=== PATIENT | female | born 1985 | race Caucasian/White ===

== ENCOUNTER 2016-08-23 08:00 | Emergency (ER) | payer BC ==
[2016-08-23 08:10] VITALS: BP 97/59
--- NOTE | 2016-08-23 08:28 | UC ---
Skin Complaint HPI - HPI Summary HPI Summary: rash on both hands x 5 days history of eczema of the the hands for years , been under good control by topical meds having a flair up of the eczema and not getting better . + itchy, redness, skin pealing and painful - History of Current Complaint Chief Complaint: UCSkin Time Seen by Provider: 08/23/16 08:17 Stated Complaint: RASH Hx Obtained From: Patient Hx Last Menstrual Period: 08/05/16 Onset/Duration: Gradual Onset, Lasting Days - 5, Still Present Timing: Constant Onset Severity: Moderate Current Severity: Moderate Location: Hand (Right), Hand (Left) Character: Pruritus, Pain, Redness, Raised, Painful Aggravating: Touch Alleviating: Nothing Associated Signs & Symptoms: Positive: Rash, Tenderness. Negative: Numbness - Allergy/Home Medications Allergies/Adverse Reactions: Allergies Allergy/AdvReac Type Severity Reaction Status Date / Time No Known Allergies Allergy Verified 09/30/14 08:16 Home Medications: Home Medications Tacrolimus 0.03% OINT(NF) [Protopic 0.03% OINT(NF)] 08/23/16 [History] Triamcinolone 0.025% OINT * 08/23/16 [History] Review of Systems Constitutional: Negative Skin: Rash Eyes: Negative ENT: Negative Respiratory: Negative All Other Systems Reviewed And Are Negative: Yes PMH/Surg Hx/FS Hx/Imm Hx - Additional Past Medical History Additional PMH: hx of eczema of hands - Surgical History Surgical History: None - Family History Known Family History: Negative: Diabetes - Social History Alcohol Use: None Substance Use Type: None Smoking Status (MU): Never Smoked Tobacco Physical Exam Triage Information Reviewed: Yes Appearance: Well-Appearing, No Pain Distress, Well-Nourished Vital Signs: Initial Vital Signs Temp 98.6 F 08/23/16 08:04 Pulse 80 08/23/16 08:04 Resp 16 08/23/16 08:04 BP 97/59 08/23/16 08:04 Pulse Ox 100 08/23/16 08:04 Vital Signs Reviewed: Yes Eyes: Positive: Conjunctiva Clear ENT: Positive: Normal ENT inspection, Hearing grossly normal, Pharynx normal Neck: Positive: Supple, Nontender, No Lymphadenopathy Respiratory: Positive: Chest non-tender, Lungs clear, Normal breath sounds Cardiovascular: Positive: RRR, No Murmur Skin: Positive: rashes - + macular rash of both hands, + erythema, no swelling , no tenderness Course/Dx - Differential Diagnoses - Skin Complaint Differential Diagnoses: Tinea - Diagnoses Provider Diagnoses: eczema hands Discharge - Discharge Plan Condition: Stable Disposition: HOME Prescriptions: predniSONE TAB* [Deltasone TAB*] 40 mg PO DAILY #14 tab Patient Education Materials: Eczema (ED) Referrals: Lesly Waters NP [Primary Care Provider] - 7 Days Additional Instructions: also concern about possible fungal infection of the hand will treat you for eczema exacerbation and please follow up with 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
== END 2016-08-23 08:36 | disposition home or self-care (01) ==
LOC: UCEAST 08:00
DX: L30.9 Dermatitis, unspecified (principal)
CPT/HCPCS: 99212; G0463

== ENCOUNTER 2017-06-07 15:26 | Inpatient (IN) | payer BC ==
--- NOTE | 2017-06-07 16:07 | HP ---
General Information - General Information Maternal Age: 32 Grav: 1 Para: 0 SAB: 0 IEA: 0 Estimated Due Date: 06/03/17 Determined By: LMP Gestational Age in Weeks and Days: 40 Weeks and 4 Days Maternal Blood Type and Rh: A Positive - Results this Serology/RPR Result: Non-Reactive Rubella Result: Immune HBsAg Result: Negative HIV Result: Negative GBS Culture Result: Negative Past Medical History Delivery History: See Records Pertinent Past Medical History: Non-Contributory Past Medical History Comment: eczema asthma depression/anxiety--managed without meds Pertinent Past Surgical History: See Records Past Surgical History Comment: Tonsillectomy 2004 Pertinent Family History: Non-Contributory - Antepartal Records Antepartal Records: Reviewed, Uncomplicated Review of Systems Constitutional: Uncomfortable CV Complaint: No Respiratory: Shortness of Breath: No Gastrointestinal: Normal Bowel Movement Genitourinary: Bleeding - brownish bloody show, No Dysuria, No Leaking Fluid Musculoskeletal: Back Pain, Contractions Neurological: No Headache, No Visual Changes Movement: Normal Exam Allergies/Adverse Reactions: Allergies No Known Allergies Allergy (Verified 09/30/14 08:16) Vital Signs 06/07/17 15:35 Temperature 99.1 F Pulse Rate 71 Respiratory 16 Rate Blood Pressure 119/73 (mmHg) O2 Sat by Pulse 100 Oximetry - Measurements Height: 5 ft 3 in Weight: 162 lb Weight in lbs: 162 Body Mass Index (BMI): 28.7 Pre- Weight: 134 lb Weight Gained This : 28 lbs and 0 ozs - Exam Abdomen: No Upper Quadrant Pain Breast: Breast Exam Deferred CVA: No CVA Tenderness Extremities: No Edema Heart: Normal Rhythm/Heart Sounds HEENT: No Significant Findings Lungs: Clear Bilaterally Rectal: Rectal Exam Deferred Reflexes: DTR 2+, - - no clonus Thyroid: - - exam WNL @ entry to care - Abdominal Exam Abdomen Exam: Non-Tender Abdomen Exam Comment: EFW 7.5-8lb - Membranes Membrane Status: Intact - Ultrasound/Biophysical Profile Ultrasound Status: Not Done EFM Findings - External Monitor Findings Baseline Heart Rate: 155 External Monitor Findings: Accelerations Present, No Pattern of Variable or Late Decelerations, Variability Moderate Contractions: Regular, Strong, 45-90 Seconds Contraction Frequency: Q 2-4 min Assessment/Plan - Reason for Visit Reason for Visit: IUP @ 40+4 weeks gestation. IBOW. No evidence metabolic acidemia. - Plan Plan: Active Labor Plan Comment: Admit to L&D. Plans unmedicated delivery. Anticipate SVB - Date/Time of Admission Date of Admission: 06/07/17 Time of Admission: 15:55
[2017-06-07 19:45] LABS: ABS Basophils 0.1 10^3/ul (0-0.2); ABS Eosinophils 0 10^3/ul (0-0.6); ABS Lymphocytes 1.6 10^3/ul (1.0-4.8); ABS Monocytes 0.7 10^3/ul (0-0.8); ABS Neutrophils 15.2 10^3/ul (1.5-7.7); ABS Nucleated RBC 0 10^3/ul; Eosinophil % 0 % (0-6); Hematocrit 41 % (35-47); Hemoglobin 14.1 g/dl (12.0-16.0); Mean Corpuscular HGB Conc 35 g/dl (31-36); Mean Corpuscular Hemoglobin 33 pg (27-31); Mean Corpuscular Volume 94 fL (80-97); Mean Platelet Volume 10.2 um3 (7.4-10.4); Nucleated Red Blood Cells % 0.1; Platelet Count 165 10^3/ul (150-450); Red Blood Count 4.31 10^6/ul (4.0-5.4); Red Cell Distribution Width 13 % (10.5-15); White Blood Count 17.7 10^3/ul (3.5-10.8)
[2017-06-07] MEDS ORDERED: OBEPIDURAL* 250 ML EPIDURAL ONE (19:45)
[2017-06-07] MEDS ORDERED: fentaNYL* 50 MCG/ML 2 ML VIAL (100 MCG VIAL) ONE (20:06)
[2017-06-07] MEDS ORDERED: Sodium Citrate/Citric Acid* 15 ML UDC PO PRN (20:36)
[2017-06-07] MEDS ORDERED: Famotidine TAB* 20 MG PO PRN (20:36)
[2017-06-07] MEDS ORDERED: Phenylephrine IV* 40 MCG/ML 10 ML SYRINGE IV PUSH PRN ×2 (20:36)
[2017-06-07] MEDS ORDERED: OBEPIDURAL* 250 ML EPIDURAL SCH (21:00)
[2017-06-08] MEDS ORDERED: Oxytocin in LR* 20 UNITS/1,000 ML BAG IVPB ONE (05:22)
[2017-06-08] MEDS ORDERED: Oxytocin in LR* 20 UNITS/1,000 ML BAG IVPB SCH (06:00)
--- NOTE | 2017-06-08 08:22 | PN ---
Progress Note - Progress Note Date of Service: 06/08/17 - labor check Note: FHT 145, mod variability. Contractions q 2-3 Pt uncomfortable, even with epidural Cervix: 8-9cm, 90%, vtx -1. AROM with exam, dark mec stained fluid Dr. García contacted to bolus epidural. Plan: get pt comfortable, continue position changes/pitocin augmentation, hope for continued progress. Pt aware of possible need for CS
[2017-06-08] MEDS ORDERED: ceFOXitin 2 GM IVPREMIX* 2 GM/50 ML BAG IVPB ONE (10:15)
--- NOTE | 2017-06-08 10:19 | PN ---
Progress Note - Progress Note Date of Service: 06/08/17 - labor check Note: pt still uncomfortable despite epidural bolus Cervix: unchanged 8cm/90%/-1 at 1000 Impression: arrest of dilation at 8cm Plan: CS recommended, pt agreeable Dr. Mccartney previously consulted, agrees with plan
[2017-06-08] MEDS ORDERED: Morphine PF AMP (0.5MG/ML)* 5 MG/10 ML AMP ONE (10:32)
[2017-06-08] MEDS ORDERED: OXYTOCIN* 10 UNITS/ML 1 ML VIAL ONE (11:29)
[2017-06-08] MEDS ORDERED: Methylergonovine INJ* 0.2 MG/ML 1ML AMP ONE (11:32)
[2017-06-08] MEDS ORDERED: Naloxone* 0.4 MG/ML 1 ML VIAL IV PRN ×2 (12:10→12:11)
[2017-06-08] MEDS ORDERED: HYDROcodone/ACETAMIN 5-325 MG* 1 TAB PO PRN (12:11)
[2017-06-08] MEDS ORDERED: Ondansetron INJ* 2 MG/ML VIAL ONE (12:13)
[2017-06-08] MEDS: Ondansetron INJ* 2 MG/ML VIAL IV PRN ×2 (12:16→18:15)
[2017-06-08] MEDS: Ibuprofen TAB* 400 MG PO SCH ×3 (12:45→23:42)
[2017-06-08] MEDS ORDERED: Glycerin ADULT SUPP PR PRN (17:48)
[2017-06-08] MEDS ORDERED: Witch Hazel PAD* JAR TOPICAL PRN (17:48)
[2017-06-08] MEDS ORDERED: Zolpidem TAB* 5 MG PO PRN (17:48)
[2017-06-08] MEDS: Docusate CAP* 100 MG PO SCH (21:00)
[2017-06-08] MEDS: Simethicone TAB* 80 MG TAB.CHEW PO SCH (21:00)
[2017-06-09] MEDS ORDERED: HYDROcodone/ACETAMIN 5-325 MG* 1 TAB PO PRN (04:01)
[2017-06-09] MEDS: Ibuprofen TAB* 600 MG PO PRN ×3 (06:13→22:55)
[2017-06-09 07:01] LABS: ABS Basophils 0.1 10^3/ul (0-0.2); ABS Eosinophils 0.1 10^3/ul (0-0.6); ABS Lymphocytes 3.1 10^3/ul (1.0-4.8); ABS Monocytes 1.1 10^3/ul (0-0.8); ABS Neutrophils 11.9 10^3/ul (1.5-7.7); ABS Nucleated RBC 0 10^3/ul; Eosinophil % 0.6 % (0-6); Hematocrit 30 % (35-47); Hemoglobin 10.5 g/dl (12.0-16.0); Lymphocyte % 19.2 % (25-47); Mean Corpuscular HGB Conc 35 g/dl (31-36); Mean Corpuscular Hemoglobin 33 pg (27-31); Mean Corpuscular Volume 96 fL (80-97); Nucleated Red Blood Cells % 0; Platelet Count 131 10^3/ul (150-450); Red Blood Count 3.15 10^6/ul (4.0-5.4); Red Cell Distribution Width 13 % (10.5-15); White Blood Count 16.3 10^3/ul (3.5-10.8)
[2017-06-09] MEDS ORDERED: Ferrous Gluconate TAB* 324 MG TAB PO SCH (09:00)
[2017-06-09] MEDS: Docusate CAP* 100 MG PO SCH ×3 (09:33→21:00)
[2017-06-09] MEDS: Simethicone TAB* 80 MG TAB.CHEW PO SCH ×4 (09:33→21:00)
--- NOTE | 2017-06-09 10:52 | OP ---
CC: Asuncion Vail CNM; [facility] OPERATIVE REPORT: DATE OF OPERATION: 06/08/17 DATE OF : 85 SURGEON: Abhay Mccartney MD SANDER OPERATOR: Asuncion Vail CNM ANESTHESIA: Spinal. PRE-OP DIAGNOSIS: Intrauterine at 40 weeks, in labor with arrest of descent and dilation. POST-OP DIAGNOSIS: Intrauterine at 40 weeks, in labor with arrest of descent and dilation along with macrosomia. OPERATIVE PROCEDURE: Primary low transverse section. ESTIMATED BLOOD LOSS: 700 cc. IV FLUIDS: She received 1700 cc of IV crystalloid fluid. URINE OUTPUT: Clear. SPECIMENS: Sent to Pathology were cord blood. FINDINGS: Delivery of a viable male over the meconium fluid with a weight of 10 pounds 4 ounc es with Apgars of 9 and 9. The placenta was grossly intact with a 3-vessel cord noted. The uterus, adnexa, bowel and bladder were all within normal limits. There were no complications. DESCRIPTION OF PROCEDURE: The patient was taken to the operating room where she was identified. She was placed on the operating table, where a spinal anesthetic was obtained without difficulty. She w as then placed in the supine position with a leftward tilt, prepped and draped in the normal sterile fashion. A Pfannenstiel skin incision was then made with a knife and carried through to the underlyi ng layer of fascia. The fascia was then nicked in the midline and extended laterally with curved May o scissors. The fascia was then grasped superiorly and inferiorly with Laura clamps and dissected o ff sharply from the rectus muscle. The rectus muscle was in the midline bluntly. The ellie toneum was identified, grasped with pickups, entered sharply with Metzenbaum scissors, and extended s uperiorly and inferiorly sharply. A bladder blade was inserted into the patient's abdomen. A bladde r flap was created using Metzenbaum scissors over which a bladder blade was then reinserted. A low t ransverse uterine incision was made with a knife extended laterally with bandage scissors. Amniotic fluid contained meconium. At this point, the infant's head was then grasped and delivered atraumatic ally. The nose and mouth were suctioned. The rest of the 's body was then delivered. The cord was clamped and cut and the infant was handed off to awaiting chief wharfinger. Cord bloods were obtain ed. The placenta was then removed manually. The uterus was then exteriorized and cleared of all clot and debris using moist laparotomy sponges. The uterine incision was then closed using 0 Polysorb ivey ture in a running locked fashion with a second imbricating layer of 0 Polysorb suture. The uterus was noted to be hemostatic. It was returned to the patient's abdomen. The gutters were then cleared of all clot and debris using moist laparotomy sponges. All the sponge and instruments were removed from the patient's abdomen. The peritoneum was then closed using 3-0 Polysorb suture in a running fashion . The fascia was closed using 0 Polysorb suture in a running fashion. The skin was closed with a 4- 0 Monocryl subcuticular stitch with several anchoring lori to hold the incisions together. The pa tiedeana tolerated the procedure well. Sponge, lap, and needle counts were correct x2. She was then tr ansferred to the recovery room area in stable condition. [id number]/[facility] #: [id number]
[2017-06-09] MEDS: Acetaminophen TAB* 325 MG PO PRN ×2 (13:36→20:32)
[2017-06-10] MEDS: Acetaminophen TAB* 325 MG PO PRN ×4 (02:29→20:39)
[2017-06-10] MEDS: Ibuprofen TAB* 600 MG PO PRN ×3 (05:06→18:11)
[2017-06-10] MEDS: Docusate CAP* 100 MG PO SCH ×3 (07:48→20:39)
[2017-06-10] MEDS: Simethicone TAB* 80 MG TAB.CHEW PO SCH ×4 (07:48→20:40)
[2017-06-11] MEDS: Ibuprofen TAB* 600 MG PO PRN ×3 (00:31→12:44)
[2017-06-11] MEDS: Acetaminophen TAB* 325 MG PO PRN ×3 (00:31→14:08)
[2017-06-11] MEDS: Simethicone TAB* 80 MG TAB.CHEW PO SCH ×2 (08:15→12:45)
[2017-06-11] MEDS: Docusate CAP* 100 MG PO SCH ×2 (08:15→14:08)
[2017-06-11 09:06] VITALS: BP 121/70
== END 2017-06-11 14:38 | disposition home or self-care (01) | DRG 540 ==
LOC: MCHOBOUT 15:26 → MCHOB 15:54
PROVIDERS: ADMIT Midwife; ATTEND Midwife
PROC: 10907ZC Drainage of Amniotic Fluid, Therapeutic from Products of Conception, Via Natural or Artificial Opening (ICD-10-PCS; principal; 2017-06-07)
PROC: 4A1HXCZ Monitoring of Products of Conception, Cardiac Rate, External Approach (ICD-10-PCS; 2017-06-07)
PROC: 3E033VJ Introduction of Other Hormone into Peripheral Vein, Percutaneous Approach (ICD-10-PCS; 2017-06-07)
PROC: 10D00Z1 Extraction of Products of Conception, Low, Open Approach (ICD-10-PCS; 2017-06-08)
DX: O77.0 Labor and delivery complicated by meconium in amniotic fluid (principal); O62.1 Secondary uterine inertia; O48.0 Post-term pregnancy; O36.63X0 Maternal care for excessive fetal growth, third trimester, not applicable or unspecified; Z37.0 Single live birth; Z3A.40 40 weeks gestation of pregnancy
CPT/HCPCS: 36415; 85025; 86850; 86900; 86901; A9270-GY; J0694; J2210; J2405; J2590; J3010

== ENCOUNTER 2020-04-24 22:03 | Inpatient (IN) ==
[2020-04-24] MEDS ORDERED: Lactated Ringers 1000 ml BAG 1,000 ML IV SCH (23:45)
[2020-04-24] MEDS ORDERED: Oxytocin in LR 20 UNITS/1,000 ML BAG IVPB SCH (23:45)
[2020-04-24] MEDS ORDERED: Lactated Ringers 1000 ml BAG 1,000 ML IV ONE (23:49)
[2020-04-24] MEDS ORDERED: Buffered Lidocaine 1% SYRIN 1 ml INTRADERM ONE (23:49)
[2020-04-25 00:46] LABS: ABS Basophils 0.1 10^3/ul (0-0.2); ABS Eosinophils 0.2 10^3/ul (0-0.6); ABS Lymphocytes 2.9 10^3/ul (1.0-4.8); ABS Monocytes 0.9 10^3/ul (0-0.8); ABS Neutrophils 9.5 10^3/ul (1.5-7.7); Eosinophil % 1.6 %; Hematocrit 33 % (35-47); Hemoglobin 11.5 g/dL (12.0-16.0); Lymphocyte % 21.7 %; Mean Corpuscular HGB Conc 35 g/dL (31-36); Mean Corpuscular Hemoglobin 33 pg (27-31); Mean Corpuscular Volume 93 fL (80-97); Mean Platelet Volume 9.6 fL (7.4-10.4); Platelet Count 183 10^3/uL (150-450); Red Blood Count 3.51 10^6 /uL (3.70-4.87); Red Cell Distribution Width 13 % (10-15); White Blood Count 13.6 10^3/uL (3.5-10.8)
[2020-04-25 01:04] LABS: Urine Benzodiazepine Screen None Detected (None Detect); Urine Cannabinoids Screen None Detected (None Detect); Urine Opiates Screen None Detected (None Detect)
[2020-04-25] MEDS ORDERED: OBEPIDURAL 250 ML EPIDURAL ONE (01:58)
[2020-04-25] MEDS ORDERED: Phenylephrine 40 mcg/mL 10mL (400mcg) SYRINGE IV PUSH PRN ×2 (02:59)
[2020-04-25] MEDS ORDERED: Sodium Citrate/Citric Acid LIQ 15 ML UDC PO PRN (02:59)
[2020-04-25] MEDS ORDERED: EPHEDrine (Pressors) 50 MG/ML VIAL IV PUSH PRN ×2 (02:59)
[2020-04-25] MEDS ORDERED: Lactated Ringers 1000 ml BAG 1,000 ML IV ONE (02:59)
[2020-04-25] MEDS ORDERED: OBEPIDURAL 250 ML EPIDURAL SCH (03:00)
[2020-04-25] MEDS ORDERED: Lactated Ringers 1000 ml BAG 1,000 ML IV SCH (03:00)
[2020-04-25] MEDS ORDERED: Ammonia Inhalant 1 EA AMP ONE (10:33)
[2020-04-25] MEDS ORDERED: Lidocaine 1% VIAL 10 MG/ML VIAL ONE (10:33)
[2020-04-25] MEDS ORDERED: Glycerin ADULT 2.4 gm SUPP PR PRN (11:27)
[2020-04-25] MEDS ORDERED: Witch Hazel PAD JAR TOPICAL PRN (11:27)
[2020-04-25] MEDS ORDERED: Dibucaine 1% OINT 28.35 GM TUBE PR PRN (11:27)
[2020-04-25] MEDS ORDERED: Oxytocin in LR 20 UNITS/1,000 ML BAG IVPB SCH (12:00)
[2020-04-26 07:41] LABS: ABS Basophils 0.1 10^3/ul (0-0.2); ABS Eosinophils 0.3 10^3/ul (0-0.6); ABS Lymphocytes 3.4 10^3/ul (1.0-4.8); ABS Monocytes 0.8 10^3/ul (0-0.8); ABS Neutrophils 8.7 10^3/ul (1.5-7.7); Eosinophil % 1.9 %; Hematocrit 33 % (35-47); Hemoglobin 11.3 g/dL (12.0-16.0); Lymphocyte % 25.8 %; Mean Corpuscular HGB Conc 35 g/dL (31-36); Mean Corpuscular Hemoglobin 33 pg (27-31); Mean Corpuscular Volume 94 fL (80-97); Mean Platelet Volume 9.5 fL (7.4-10.4); Platelet Count 174 10^3/uL (150-450); Red Blood Count 3.47 10^6 /uL (3.70-4.87); Red Cell Distribution Width 14 % (10-15); White Blood Count 13.1 10^3/uL (3.5-10.8)
[2020-04-27 08:12] VITALS: BP 94/50
== END 2020-04-27 14:00 | disposition home or self-care (01) | DRG 560 ==
LOC: MCHOBOUT 22:03 → MCHOB 23:22
PROVIDERS: ADMIT Obstetrics & Gynecology; ATTEND Obstetrics & Gynecology